=== PATIENT | male | born 1970 | race African-American/Black ===

== ENCOUNTER 2017-12-26 05:26 | Emergency (ER) | payer SELFPAY ==
[~2017-12-26] VITALS: Ht 185.4 cm; Wt 89.9 kg
[2017-12-26 05:29] VITALS: BP 132/94
[2017-12-26] MEDS ORDERED: ALBUTEROL/IPRATROPIUM 2.5MG/0.5MG, 3 ML ONE (06:00)
[2017-12-26] MEDS: ALBUTEROL/IPRATROPIUM 2.5MG/0.5MG, 3 ML NPPB SCH ×2 (06:01→06:02)
== END 2017-12-26 06:38 | disposition home or self-care (01) ==
LOC: ED 06:12
DX: J44.1 Chronic obstructive pulmonary disease with (acute) exacerbation (principal); F17.200 Nicotine dependence, unspecified, uncomplicated
CPT/HCPCS: 71046; 93005; 94640; 99284; J7512; J7620

== ENCOUNTER 2018-01-15 21:57 | Emergency (ER) | payer OTHER ==
[~2018-01-15] VITALS: Ht 185.4 cm; Wt 88.4 kg
[2018-01-15] MEDS ORDERED: ALBUTEROL/IPRATROPIUM 2.5MG/0.5MG, 3 ML ONE (22:41)
[2018-01-15 22:53] VITALS: BP 135/99
[2018-01-15] MEDS ORDERED: ALBUTEROL/IPRATROPIUM 2.5MG/0.5MG, 3 ML NPPB ONE (23:00)
[2018-01-15 23:05] LABS: BASOPHILS # (AUTO) 0.05 x10^3/uL (0-0.1); BASOPHILS % (AUTO) 1 % (0-1); EOSINOPHILS # (AUTO) 0.77 x10^3/uL (0-0.4); EOSINOPHILS % (AUTO) 10 % (1-7); LYMPHOCYTES # (AUTO) 2.71 x10^3/uL (1-3.4); LYMPHOCYTES % (AUTO) 36 % (22-44); MD NO; MEAN CORPUSCULAR HEMOGLOBIN 31.7 pg (27.5-34.5); MEAN CORPUSCULAR HGB CONC 33.9 g/dL (33.2-36.2); MEAN CORPUSCULAR VOLUME 93.7 fL (81-97); MEAN PLATELET VOLUME 7.2 fL (7.4-10.4); MONOCYTES # (AUTO) 0.63 x10^3/uL (0.2-0.8); MONOCYTES % (AUTO) 8 % (2-9); NEUTROPHILS # (AUTO) 3.34 x10^3/uL (1.8-6.8); NEUTROPHILS % (AUTO) 45 % (42-75); PLATELET COUNT 297 x10^3/uL (130-400); RED BLOOD COUNT 4.62 x10^6/uL (4.38-5.82); RED CELL DISTRIBUTION WIDTH 13.5 % (9.4-14.8)
[2018-01-15 23:16] LABS: ALBUMIN 3.9 g/dL (3.4-5.0); ANION GAP 8 mmol/L (5-15); CALCIUM 8.5 mg/dL (8.5-10.1); CHLORIDE 108 mmol/L (98-107); CREATININE 0.97 mg/dL (0.7-1.3)
[2018-01-15 23:19] LABS: TROPONIN I < 0.015 ng/mL (0.000-0.045)
== END 2018-01-16 00:11 | disposition home or self-care (01) ==
LOC: ED 23:58
DX: J44.1 Chronic obstructive pulmonary disease with (acute) exacerbation (principal); B34.9 Viral infection, unspecified; F17.210 Nicotine dependence, cigarettes, uncomplicated
CPT/HCPCS: 36415; 71046; 80048; 82040; 83880; 84484; 85025; 93005; 94640; 99285; 99406; J7512; J7620

== ENCOUNTER 2018-04-10 17:30 | Emergency (ER) | payer SELFPAY ==
[~2018-04-10] VITALS: Ht 185.4 cm; Wt 89.1 kg
[2018-04-10 17:58] VITALS: BP 143/86
== END 2018-04-10 19:49 | disposition home or self-care (01) ==
LOC: ED 18:42
DX: L01.01 Non-bullous impetigo (principal); L20.84 Intrinsic (allergic) eczema; J44.9 Chronic obstructive pulmonary disease, unspecified; F17.200 Nicotine dependence, unspecified, uncomplicated
CPT/HCPCS: 99283

== ENCOUNTER 2019-04-08 22:39 | Emergency (ER) | payer MEDICAID ==
[~2019-04-08] VITALS: Ht 185.4 cm; Wt 92.8 kg
[~2019-04-08 22:39] MED LIST: ALBU2.5V NPPB; DOXY100C2 PO; IPRA3AMP30 NPPB; PRED10TA PO
[2019-04-08] MEDS ORDERED: ALBUTEROL/IPRATROPIUM 2.5MG/0.5MG, 3 ML ONE (23:20)
[2019-04-08] MEDS ORDERED: ALBUTEROL SULFATE 2.5 MG/3 ML ONE (23:23)
[2019-04-08] MEDS ORDERED: ALBUTEROL SULFATE 2.5 MG/3 ML NPPB ONE (23:30)
--- NOTE | 2019-04-08 23:48 | NUR ---
Patient ambulated into room. Was evaluated by primary care provider and orders placed. Primary concern over patient's shortness of breathy. REspiratory therapy was called. Respiratory therapist informed RN that two treatments were given and a follow up treatment was still, yet. RN returned to bedside to administer steroidal antinflammatories per provider order (see electronic medical administration record.) Patient reports still being short of breath but with improvement. RN able to titrate oxygen down from 2 liters of Oxygen per minute to 1 Liter per minute. Saturations >93%. Patient oriented to call light system and emergency department. Patient verbalized familiarity. Awaiting second respiratory treatment
[2019-04-09 00:59] VITALS: BP 134/80
== END 2019-04-09 01:02 | disposition home or self-care (01) ==
LOC: ED 04-09 00:12
DX: J44.1 Chronic obstructive pulmonary disease with (acute) exacerbation (principal); F17.200 Nicotine dependence, unspecified, uncomplicated
CPT/HCPCS: 71045; 93005; 94640; 99283; J7512

== ENCOUNTER 2019-08-21 21:16 | Emergency (ER) | payer SELFPAY ==
[~2019-08-21] VITALS: Ht 185.4 cm; Wt 93.9 kg
[2019-08-21] MEDS ORDERED: ALBUTEROL/IPRATROPIUM 2.5MG/0.5MG, 3 ML ONE ×2 (21:38→22:18)
[2019-08-21] MEDS: ALBUTEROL/IPRATROPIUM 2.5MG/0.5MG, 3 ML NPPB SCH ×2 (21:48→22:19)
--- NOTE | 2019-08-21 21:58 | NUR ---
REPORT RECEIVED FROM LEVI RODRÍGUEZ.
--- NOTE | 2019-08-21 22:45 | NUR ---
REPORT GIVEN TO WINSOME RODRÍGUEZ. PT RESTING ON Fever W/ CALL LIGHT IN REACH.
--- NOTE | 2019-08-21 23:01 | NUR ---
PT D/C WITH D/C SUMMARY AND SCRIPTS. ALL QUESTIONS ANSWERED. PT VSS AND UPDATED IN EMR PRIOR TO D/C. PT AMBUALTES TO [facility] ED EXIT FOR D/C HOME AND DENIES ANY OTHER NEEDS PERTAINING TO THIS VISIT.
[2019-08-21 23:02] VITALS: BP 145/95
== END 2019-08-21 23:04 | disposition home or self-care (01) ==
LOC: ED 21:44
DX: J44.1 Chronic obstructive pulmonary disease with (acute) exacerbation (principal); R06.00 Dyspnea, unspecified; R05 Cough; R00.0 Tachycardia, unspecified; Z87.891 Personal history of nicotine dependence
CPT/HCPCS: 71045; 93005; 94640; 99284; J7512

== ENCOUNTER 2019-09-07 20:45 | Emergency (ER) | payer MEDICAID, OTHER ==
[~2019-09-07] VITALS: Ht 185.4 cm; Wt 98.2 kg
[2019-09-07 20:53] VITALS: BP 134/95
[2019-09-07] MEDS ORDERED: ALBUTEROL SULFATE 2.5 MG/3 ML NPPB ONE (21:30)
== END 2019-09-07 22:17 ==
LOC: ED 22:17
DX: J45.41 Moderate persistent asthma with (acute) exacerbation (principal); R00.0 Tachycardia, unspecified; Z87.891 Personal history of nicotine dependence
CPT/HCPCS: 93005; 94640; 99283; J7512; J7613

== ENCOUNTER 2019-09-29 19:17 | Emergency (ER) | payer MEDICAID ==
[~2019-09-29] VITALS: Ht 185.4 cm; Wt 98.8 kg
[2019-09-29 19:19] VITALS: BP 143/107
[2019-09-29] MEDS ORDERED: ALBUTEROL/IPRATROPIUM 2.5MG/0.5MG, 3 ML ONE (20:00)
[2019-09-29] MEDS ORDERED: ALBUTEROL/IPRATROPIUM 2.5MG/0.5MG, 3 ML NPPB ONE (20:00)
--- NOTE | 2019-09-29 20:42 | NUR ---
PT RESTING IN [facility]. PT REPORTS IMPROVEMENT FROM BREATHING TX AND MEDS.
== END 2019-09-29 21:43 | disposition home or self-care (01) ==
LOC: ED 21:02
DX: J45.31 Mild persistent asthma with (acute) exacerbation (principal); I45.9 Conduction disorder, unspecified; R00.0 Tachycardia, unspecified; Z87.891 Personal history of nicotine dependence
CPT/HCPCS: 93005; 94640; 99283; J7512

== ENCOUNTER 2019-10-04 16:41 | Emergency (ER) | payer MEDICAID ==
[~2019-10-04] VITALS: Ht 185.4 cm; Wt 96.7 kg
[2019-10-04 16:54] VITALS: BP 141/108
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
== END 2019-10-04 17:39 | disposition home or self-care (01) ==
LOC: ED 17:22
DX: S00.81XA Abrasion of other part of head, initial encounter (principal); J44.9 Chronic obstructive pulmonary disease, unspecified; Z87.891 Personal history of nicotine dependence; W57.XXXA Bitten or stung by nonvenomous insect and other nonvenomous arthropods, initial encounter; Y93.89 Activity, other specified; Y92.89 Other specified places as the place of occurrence of the external cause; Y99.8 Other external cause status
CPT/HCPCS: 99281

== ENCOUNTER 2019-11-28 14:16 | Emergency (ER) | payer MEDICAID ==
[~2019-11-28] VITALS: Ht 185.4 cm; Wt 99.0 kg
[2019-11-28 14:21] VITALS: BP 145/104
[2019-11-28] MEDS ORDERED: PROPARACAINE OPHTH 0.5%, 15ML ONE (15:03)
== END 2019-11-28 16:19 | disposition home or self-care (01) ==
LOC: ED 14:50
DX: H10.023 Other mucopurulent conjunctivitis, bilateral (principal); J44.9 Chronic obstructive pulmonary disease, unspecified; Z87.891 Personal history of nicotine dependence
CPT/HCPCS: 99283

== ENCOUNTER 2019-12-22 12:45 | Emergency (ER) | payer MEDICAID ==
[~2019-12-22] VITALS: Ht 185.4 cm; Wt 98.0 kg
--- NOTE | 2019-12-22 13:12 | NUR ---
PT CAME IN CO OF "WHEEZING THE PAST 2 DAYS". PT STATES HE HAS COPD AND HE HAS COME HERE BEFORE FOR PREDNISONE AND A BREATHING TREATMENT WHICH HELPS HIM. HE IS OUT OF HIS HOME INHALER. PT DENIES FEVER, SORE THROAT, CHILLS OR ANY OTHER FLU LIKE SYMPTOMS. PT IS RESTING IN RNEY. CONNECTED TO MONITORING EQUIPMENT.
[2019-12-22] MEDS ORDERED: ALBUTEROL SULFATE 2.5 MG/3 ML ONE (13:16)
--- NOTE | 2019-12-22 13:24 | NUR ---
RECEIVED REPORT FROM ANNE RICHARDS. PT MEDICATED PER JUN. PT RESTING ON GURVERONICA. NADN. JAIMESS.
[2019-12-22 13:25] VITALS: BP 127/98
[2019-12-22] MEDS ORDERED: ALBUTEROL SULFATE 2.5 MG/3 ML NPPB ONE (13:30)
--- NOTE | 2019-12-22 13:42 | NUR ---
PT STATES HE FEELS MUCH IMPROVED AFTER BREATHING TX. RESTING ON GURNEY. NOBLES.
== END 2019-12-22 14:25 | disposition home or self-care (01) ==
LOC: ED 13:39
DX: J45.41 Moderate persistent asthma with (acute) exacerbation (principal); R06.02 Shortness of breath; Z20.828 Contact with and (suspected) exposure to other viral communicable diseases; R05 Cough
CPT/HCPCS: 36415; 71045; 87635; 93005; 94640; 99285; J7512; J7613

== ENCOUNTER 2020-01-07 22:53 | Emergency (ER) | payer MEDICAID ==
[~2020-01-07] VITALS: Ht 185.4 cm; Wt 96.9 kg
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
[2020-01-07] MEDS ORDERED: ALBUTEROL SULFATE 2.5 MG/3 ML ONE (23:47)
[2020-01-08] MEDS ORDERED: ALBUTEROL SULFATE 2.5 MG/3 ML NPPB ONE
[2020-01-08 00:12] VITALS: BP 140/100
== END 2020-01-08 00:53 | disposition home or self-care (01) ==
LOC: ED 23:25
DX: J44.1 Chronic obstructive pulmonary disease with (acute) exacerbation (principal); R06.00 Dyspnea, unspecified; Z87.891 Personal history of nicotine dependence
CPT/HCPCS: 94640; 99283; J7512; J7613

== ENCOUNTER 2020-01-24 02:26 | Emergency (ER) | payer MEDICAID ==
[~2020-01-24] VITALS: Ht 185.4 cm; Wt 100.5 kg
[2020-01-24 02:30] VITALS: BP 133/89
[2020-01-24] MEDS ORDERED: ALBUTEROL/IPRATROPIUM 2.5MG/0.5MG, 3 ML NEB ONE (03:00)
[2020-01-24] MEDS ORDERED: ALBUTEROL SULFATE 2.5 MG/3 ML NPPB ONE (03:00)
[2020-01-24] MEDS ORDERED: ALBUTEROL/IPRATROPIUM 2.5MG/0.5MG, 3 ML ONE (03:05)
[2020-01-24] MEDS ORDERED: ALBUTEROL SULFATE 2.5 MG/3 ML ONE (03:05)
== END 2020-01-24 04:03 | disposition home or self-care (01) ==
LOC: ED 03:30
DX: J44.1 Chronic obstructive pulmonary disease with (acute) exacerbation (principal); R00.0 Tachycardia, unspecified; R94.31 Abnormal electrocardiogram [ECG] [EKG]; Z87.891 Personal history of nicotine dependence
CPT/HCPCS: 93005; 94640; 99283; J7512; J7613; 99284

== ENCOUNTER 2020-02-06 15:51 | Emergency (ER) | payer MEDICAID ==
[~2020-02-06] VITALS: Ht 185.4 cm; Wt 98.2 kg
[2020-02-06] MEDS ORDERED: ALBUTEROL/IPRATROPIUM 2.5MG/0.5MG, 3 ML NPPB SCH (16:00)
[2020-02-06 16:23] LABS: BASOPHILS % (AUTO) 1 % (0-1); EOSINOPHILS % (AUTO) 7 % (1-7); LYMPHOCYTES % (AUTO) 25 % (22-44); MEAN CORPUSCULAR HEMOGLOBIN 31.1 pg (27.5-34.5); MEAN CORPUSCULAR HGB CONC 33.7 g/dL (33.2-36.2); MEAN PLATELET VOLUME 6.8 fL (7.4-10.4); MONOCYTES % (AUTO) 12 % (2-9); NEUTROPHILS % (AUTO) 55 % (42-75); PLATELET COUNT 324 x10^3/uL (130-400); RED BLOOD COUNT 4.95 x10^6/uL (4.38-5.82); RED CELL DISTRIBUTION WIDTH 13.2 % (9.4-14.8)
[2020-02-06 16:26] LABS: MD NO
[2020-02-06 16:34] LABS: ALANINE AMINOTRANSFERASE 24 U/L (12-78); ALBUMIN 3.6 g/dL (3.4-5.0); ANION GAP 7 mmol/L (5-15); CALCIUM 8.9 mg/dL (8.5-10.1); CHLORIDE 109 mmol/L (98-107)
[2020-02-06 16:37] LABS: ALKALINE PHOSPHATASE 83 U/L (45-117); BILIRUBIN,TOTAL 0.6 mg/dL (0.2-1.0); TOTAL PROTEIN 7.6 g/dL (6.4-8.2)
--- NOTE | 2020-02-06 17:14 | NUR ---
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
[2020-02-06] MEDS ORDERED: ALBUTEROL/IPRATROPIUM 2.5MG/0.5MG, 3 ML ONE (17:47)
[2020-02-06 17:54] VITALS: BP 136/88
--- NOTE | 2020-02-06 18:08 | NUR ---
PT MEDICATED PER MAR, VSS AT THIS TIME
--- NOTE | 2020-02-06 18:11 | NUR ---
ERMD IN TO EVAL PT
== END 2020-02-06 18:52 | disposition home or self-care (01) ==
LOC: ED 16:09
DX: J44.1 Chronic obstructive pulmonary disease with (acute) exacerbation (principal); R00.0 Tachycardia, unspecified; Z87.891 Personal history of nicotine dependence
CPT/HCPCS: 36415; 71045; 80053; 85025; 93005; 94640; 99285

== ENCOUNTER 2020-07-25 16:57 | Emergency (ER) | payer MEDICAID ==
[~2020-07-25] VITALS: Ht 185.4 cm; Wt 96.8 kg
[2020-07-25 17:10] VITALS: BP 143/96
== END 2020-07-25 17:32 | disposition home or self-care (01) ==
LOC: ED 17:19
DX: J44.1 Chronic obstructive pulmonary disease with (acute) exacerbation (principal); Z76.0 Encounter for issue of repeat prescription
CPT/HCPCS: 99283

== ENCOUNTER 2021-01-11 06:49 | Emergency (ER) | payer MEDICAID ==
[~2021-01-11] VITALS: Ht 185.4 cm; Wt 97.6 kg
[~2021-01-11 06:49] MED LIST changes: -DOXY100C2 PO; +DOXY100C5 PO
[2021-01-11 06:53] VITALS: BP 141/96
[2021-01-11] MEDS ORDERED: ALBUTEROL/IPRATROPIUM 2.5MG/0.5MG, 3 ML ONE (07:19)
[2021-01-11] MEDS ORDERED: ALBUTEROL/IPRATROPIUM 2.5MG/0.5MG, 3 ML NPPB ONE (07:30)
== END 2021-01-11 08:22 | disposition home or self-care (01) ==
LOC: ED 07:16
DX: J44.1 Chronic obstructive pulmonary disease with (acute) exacerbation (principal); Z87.891 Personal history of nicotine dependence
CPT/HCPCS: 71045; 93005; 94640; 99283; J7512